=== PATIENT | female | born 1995 | race Two or more races ===

== ENCOUNTER 2017-02-18 17:48 | Emergency (ER) | payer OTHER ==
[~2017-02-18] VITALS: Ht 162.6 cm; Wt 55.8 kg
--- NOTE | ~2017-02-18 | CT2 ---
[facility] A Service of [facility] & [facility] RADIOLOGY TEXT RESULTS PATIENT: LESLY ANDREWS LOCATION: [facility]FT[facility] : [birth year] UNIT #: [id number] AGE: [address]: Yung Cao SEX: F ORDER DR: [id number] [facility] [address] [place], [place] [address] [id number] E MR#: [id number] Acc #: [id number] NAME: LESLY ANDREWS : 1995 SEX: F STUDY DATE/TIME: 02/18/2017 20:07 UNIT: [facility] ROOM: STUDY DESCRIPTION: CT Abd and Pelv W Cont Attending Physician: Yung Cao P.A.-C. Ordering Physician: Evelyne Connell P.A.-C. Primary Care Physician: No Primary Care Physician MEDICAL IMAGING REPORT This report is preliminary unless electronic signature is present EXAMINATION CT abdomen and pelvis with contrast. DATE 02/18/2017 HISTORY 21-year-old female with right lower quadrant abdominal pain for 3 years. Right shoulder pain for 1 year. Previous appendectomy. COMPARISON None. PROCEDURE 5 mm axial images from lung bases to lesser trochanters after intravenous contrast administration. Enteric contrast not administered. Sagittal and coronal reformatted images were obtained. This CT exam was performed with one or more of the following radiation dose reduction techniques: automatic exposure control, adjustment of mA and/or kV according to patient size, and iterative reconstruction. FINDINGS ABDOMEN FINDINGS: The appendix is surgically absent. There is a nonspecific, but nonobstructive, bowel gas pattern. The liver, gallbladder, spleen, pancreas, adrenals and kidneys are normal. No adenopathy or free air is identified. PELVIS FINDINGS: Heterogeneously enhancing solid mass is seen within the pelvis to the left of midline measuring 4.5 x 4.8 cm. Etiology of this is unclear. It is favored to represent a large subserosal fibroid. Ovarian lesion cannot be completely excluded, but is thought less likely. What appears to be a left ovarian or left adnexal cyst measures 3 cm. Right ovary contains a cyst measuring 1.5 cm. There is trace pelvic free fluid. STS. [facility] A Service of [facility] & [facility] RADIOLOGY TEXT RESULTS PATIENT: LESLY ANDREWS LOCATION: [facility] : [birth year] UNIT #: [id number] AGE: [address]: Yung Cao SEX: F ORDER DR: Urinary bladder and rectum are normal. No acute osseous abnormalities are identified. IMPRESSION 1. Heterogeneous soft tissue mass in the left hemipelvis measuring 7.5 x 4.5 cm. Its exact etiology is unclear. It is favored to represent a large subserosal uterine fibroid. Ovarian mass lesion cannot be excluded. Additionally, what appears to be a left adnexal or left ovarian cyst measures 3 cm. Pelvic ultrasound would be recommended for further evaluation to make this distinction. 2. 1.5 cm right ovarian cyst. 3. Trace pelvic free fluid. 4. The appendix is surgically absent. 5. The remainder of the examination is within normal limits. Dictated by... Anat Fuentes M.D. THIS IS AN ELECTRONICALLY VERIFIED REPORT Anat Fuentes M.D. at 02/19/2017 1:55 PM ANA LUISA/janet TD: 02/19/2017 10:52 JOB #: [id number] MEDICAL IMAGING REPORT Page 1 of 1 COPY
--- NOTE | ~2017-02-18 | US98 ---
[facility] A Service of [facility] & [facility] RADIOLOGY TEXT RESULTS PATIENT: LESLY ANDREWS LOCATION: [facility]FT[facility] : [birth year] UNIT #: [id number] AGE: [address]: Yung Cao SEX: F ORDER DR: [id number] [facility] [address] [place], [place] [address] [id number] E MR#: [id number] Acc #: [id number] NAME: LESLY ANDREWS : 1995 SEX: F STUDY DATE/TIME: 02/18/2017 21:11 UNIT: [facility] ROOM: STUDY DESCRIPTION: US Pelvic Non-OB Complete Attending Physician: Yung Cao P.A.-C. Ordering Physician: Yung Cao P.A.-C. Primary Care Physician: No Primary Care Physician MEDICAL IMAGING REPORT This report is preliminary unless electronic signature is present EXAM Pelvic ultrasound transabdominal study. HISTORY Right lower quadrant pain for 3 years. Pelvic masses on CT earlier today, probably fibroids. FINDINGS Ultrasound examination of the pelvis was performed with transabdominal technique. Heterogeneous uterine echotexture, with dominant exophytic mass along the left lateral uterine margin, corresponding to the dominant abnormality on CT earlier today, measuring close to 6.5 cm. This appears contiguous with the uterus and is likely a pedunculated uterine fibroid. Heterogeneous echotexture within the remainder of the uterus is probably secondary to additional smaller uterine fibroids. Exam sensitivity is partly limited without endovaginal scanning. No endometrial thickening. The endometrium measures approximately 6 mm. No endometrial fluid. At least one discrete fibroid in the uterine fundus measures close to 2 cm. The ovaries are not optimally seen, but the probably visualized bilateral ovaries appear to contain small follicular cysts and blood flow is noted in both ovaries. IMPRESSION 1. Probable multiple uterine fibroids, the largest of which appears to be pedunculated and arise from the left lateral margin of the uterus and measures close to 6.5 cm and likely corresponds to the dominant abnormality in the pelvis noted on CT earlier today. Probable additional smaller uterine fibroids. 2. Exam sensitivity is limited without endovaginal scanning. 3. The ovaries are not optimally seen but there appears to be blood flow in both ovaries and there are probable small follicular cysts in both ovaries. 4. No endometrial thickening or endometrial fluid. [facility] A Service of [facility] & [facility] RADIOLOGY TEXT RESULTS PATIENT: LESLY ANDREWS LOCATION: [facility] : [birth year] UNIT #: [id number] AGE: [address]: Yung Cao PAC SEX: F ORDER DR: Dictated by... George Oseguera M.D. THIS IS AN ELECTRONICALLY VERIFIED REPORT George Oseguera M.D. at 02/19/2017 12:08 PM DFL/sadie TD: 02/19/2017 11:22 JOB #: [id number] MEDICAL IMAGING REPORT Page 1 of 1 COPY
[~2017-02-18 17:48] MED LIST: FERRO-TIME325 MG PO; RANITIDINE HCL150 M1 PO
[2017-02-18 19:18] LABS: BASOPHIL% 0.4 % (0-2.5); EOSINOPHIL# 0.1 X10e3 (0-0.7); EOSINOPHIL% 1.4 % (0.0-7.0); HEMATOCRIT 34.5 % (35.0-45.0); HEMOGLOBIN 11.3 gm/dL (12.0-16.0); LYMPHOCYTE# 3.7 X10e3 (1.0-3.5); LYMPHOCYTE% 57.6 % (17.0-45.0); MEAN CORPUSCULAR HEMOGLOBIN 29.2 PG (28-34); MEAN CORPUSCULAR HGB CONC 32.7 g/dL (30-36); MEAN PLATELET VOLUME 7.8 FL (6.5-11.5); MONOCYTE# 0.7 X10e3 (0-1.0); MONOCYTE% 10.8 % (3.0-12.0); NEUTROPHIL# 1.9 X10e3 (1.5-7.1); NEUTROPHIL% 29.8 % (40-75); PLATELET COUNT 193 X10e3 (140-420); RED BLOOD COUNT 3.87 X10e (3.90-5.30); RED CELL DISTRIBUTION WIDTH 13.8 % (11.0-15.5); WHITE BLOOD COUNT 6.4 X10e3 (4.0-10.5)
[2017-02-18 19:23] LABS: DIFF IND YES
[2017-02-18 19:26] LABS: URINE SOURCE CLEAN CATCH
[2017-02-18 19:33] LABS: URINE APPEARANCE CLEAR; URINE BILIRUBIN NEG (NEG); URINE BLOOD NEG (NEG); URINE COLOR YELLOW; URINE GLUCOSE NEG (NEG); URINE KETONE NEG (NEG); URINE LEUKOCYTE ESTERASE NEG (NEG); URINE NITRATE NEG (NEG); URINE PROTEIN NEG (NEG); URINE SPECIFIC GRAVITY 1.023 (1.003-1.035)
[2017-02-18 19:34] LABS: ALBUMIN SERUM 4.3 g/dL (3.5-5.0); ALKALINE PHOSPHATASE 51 U/L (32-92); ALT (SGPT) 19 U/L (10-40); AST (SGOT) 29 U/L (10-42); BILIRUBIN, DIRECT <0.1 mg/dL (0.0-0.2); BILIRUBIN,INDIRECT 0.2 mg/dL (0.0-0.9); BILIRUBIN,TOTAL 0.3 mg/dL (0.2-2.0); BLOOD UREA NITROGEN 8 mg/dL (9-23); BUN/CREATININE RATIO 11.42; CALCIUM SERUM 8.8 mg/dL (8.4-10.2); CARBON DIOXIDE 25 mmol/L (22-31); CHLORIDE 104 mmol/L (100-111); CREATININE SERUM 0.7 mg/dL (0.6-1.4); GLUCOSE FASTING 81 mg/dL (70-110); LIPASE 34 U/L (22-51); POTASSIUM 3.6 mmol/L (3.5-5.1); PROTEIN TOTAL SERUM 8.2 g/dL (6.0-8.3); SODIUM 136 mmol/L (135-145)
[2017-02-18 19:47] LABS: CULTURE INDICATED? NO
[2017-02-18 19:57] LABS: ANISOCYTOSIS SL; PLATELET ESTIMATE NORMAL (NORMAL)
[2017-02-22 02:08] LABS: CHLAMYDIA TRACH Not Detected (Not Detected); N GONOR Not Detected (Not Detected)
== END 2017-02-18 22:30 | disposition home or self-care (01) ==
LOC: CED 17:48 → CFTX 17:48
PROVIDERS: Physician Assistant
DX: D25.2 Subserosal leiomyoma of uterus (principal); D64.9 Anemia, unspecified; K21.9 Gastro-esophageal reflux disease without esophagitis; Z90.49 Acquired absence of other specified parts of digestive tract
CPT/HCPCS: 36415; 74177; 76856; 80048; 80076; 81003; 83690; 84703; 85025; 87491; 87591; 87808; 87905; 96374; 99284; J1885; Q9967